=== PATIENT | male | born 1970 | race Caucasian/White ===

== ENCOUNTER 2021-02-16 07:45 | Outpatient (CLI) | payer SELFPAY ==
[2021-02-16 08:11] LABS: Basophils Absolute Auto 0.1 K/mm3 (0.0-0.1); Basophils Percent Auto 1.3 % (0.2-1.2); Eosinophils Absolute Auto 0.2 K/mm3 (0-0.3); Eosinophils Percent Auto 4.5 % (0-4.4); Hemoglobin 15.1 g/dL (14.0-18.0); Immature Granulocyte Absolute 0.03 K/mm3 (0.00-0.031); Immature Granulocyte Percent A 0.8 % (0-0.5); Lymphocytes Percent Auto 26.6 % (18.3-44.2); Mean Corpuscular HGB Conc 32.8 g/dl (32-36); Mean Corpuscular Hemoglobin 29.7 pg (26-34); Mean Corpuscular Volume 90.4 fl (80-100); Mean Platelet Volume 9.9 fl (7.4-10.4); Monocytes Absolute Auto 0.5 K/mm3 (0.1-0.6); Monocytes Percent Auto 13.8 % (2.6-8.5); Platelet Count Result 223 k/mm3 (150-375); Red Blood Count 5.09 M/mm3 (4.6-6.20); Red Cell Distribution Width 13.1 % (11.5-14.5); White Blood Count 3.8 K/mm3 (4.5-10.0)
[2021-02-16 08:26] LABS: Alanine Aminotransferase 27 U/L (4-50); Albumin Level 4.5 g/dL (3.5-5.1); Alkaline Phosphatase 58 U/L (38-126); Anion Gap 5 mmol/L (8-16); Aspartate Amino Transferase 24 U/L (17-59); Bilirubin,Total 0.4 mg/dL (0.2-1.3); Blood Urea Nitrogen 18 mg/dL (9-20); Calcium 9.3 mg/dL (8.4-10.2); Carbon Dioxide 27 mmol/L (22-30); Chloride 106 mmol/L (98-107); Cholesterol 179 mg/dL (0-200); Estimated Glomerular Filt Rate > 60; Glucose 108 mg/dL (65-110); HDL Direct 81 mg/dL; Potassium 4.3 mmol/L (3.4-5.0); Sodium 138 mmol/L (137-145); Triglycerides 40 mg/dL (<150)
[2021-02-16 08:39] LABS: LDL Cholesterol Direct 68 mg/dL
== END 2021-02-16 07:46 | disposition home or self-care (01) ==
LOC: ANHLAB 07:48
PROVIDERS: PCP Internal Medicine; Visit Provider Nurse Practitioner
DX: Z13.29 Encounter for screening for other suspected endocrine disorder (principal); Z13.220 Encounter for screening for lipoid disorders
CPT/HCPCS: 36415; 80053; 80061; 85025

== ENCOUNTER 2023-09-01 11:31 | Emergency (ER) | payer SELFPAY ==
[2023-09-01 11:32] VITALS: BP 173/89; PULSE 80; RESP 14; TEMP 36.5; O2SAT 100
[2023-09-01] MEDS: KETOROLAC 30 MG/ML VIAL (*BKC) IM (12:28)
--- NOTE | 2023-09-01 12:35 | ED.GENADULT ---
[facility] - General Adult General Chief complaint: Abdominal Pain Stated complaint: ABD PAIN Time Seen by Provider: 09/01/23 11:35 Source: patient Mode of arrival: ambulatory Limitations: no limitations History of Present Illness [facility] narrative: This is a 52-year-old male who presents to the ED with chief complaint of right-sided abdominal pain beginning last night while he slept. Reports the pain came on the right lateral abdomen. He was able to take ibuprofen and go back to bed. Reports that last night the pain was 8/10 and now is 4/10. He is thinking the ibuprofen might have helped. States the pain is worse with certain movements and certain positions. He has been working out more over the last few weeks and did an ab workout 2 days ago. Denies any specific injury. Denies troubles with bowel movements, urinary symptoms, fevers, chills, nausea, vomiting, flank pain, chest pain or cough. Related Data Allergies Allergy/AdvReac Type Severity Reaction Status Date / Time No Known Allergies Allergy Verified 08/03/22 11:01 Review of Systems Review of Systems: All systems as dictated in [facility] Past Medical History Medical History Abscess Cellulitis Hypertension Tachycardia Family History Family History Father Acute myocardial infarction Social History Social History Smoking status: Former smoker Alcohol intake: current Alcohol use details: occasionally Lack of Transportation: No Lack of Food: Never True Current Housing: I Have Housing Concerned About Future Housing: No Difficulty Paying Gas/Electric Bills: No Difficulty Paying for Meds: No Currently Unemployed: No Education: Bachelor's Degree Difficulty w/ Childcare or Family Care: No Exam Narrative: GENERAL: Well-appearing, well-nourished, and in no acute distress. HEAD: Normocephalic, atraumatic. EYES: PERRLA and EOMI. ENT: Nares clear, no rhinorrhea or epistaxis. Mucous membranes moist. Oropharynx without tonsillar hypertrophy exudate or other lesions. NECK: Supple. No adenopathy or masses. CHEST: No respiratory distress. Clear to auscultation. No wheezes rales or rhonchi HEART: Regular rate and rhythm. No murmur heard. Normal peripheral pulses. ABDOMEN: Soft, nontender, nondistended, normal active bowel sounds. Negative flank tenderness bilaterally MSK: Normal range of motion. No edema. SKIN: Warm, dry, no rash. NEURO: Alert and oriented x3. No focal deficits. PSYCH: Normal mood and affect. Course Vital Signs Vital signs: Vital Signs Temperature 97.7 F 09/01/23 11:32 Pulse Rate 80 09/01/23 11:32 Respiratory Rate 14 09/01/23 11:32 Blood Pressure 173/89 H 09/01/23 11:32 Pulse Oximetry 100 09/01/23 11:32 Temperature 97.7 F 09/01/23 11:32 Pulse Rate 80 09/01/23 11:32 Respiratory Rate 14 09/01/23 11:32 Blood Pressure 173/89 H 09/01/23 11:32 Pulse Oximetry 100 09/01/23 11:32 Medical Decision Making MDM Narrative Medical decision making narrative: This is a 52-year-old male presents to the ED with chief complaint right-sided abdominal pain beginning overnight. Actually eased up this morning after taking ibuprofen. Vitals are normal. Exam is benign. No focal abdominal tenderness. No flank tenderness. Lab work is grossly benign. Urinalysis negative. Shared decision making to avoid CT at this point with a normal workup. Symptoms most likely consistent with musculoskeletal strain. Pt will be discharged in stable condition. Return precautions given and supportive measures discussed. Pt is understanding and agreeable with plan for discharge and follow-up with PCP. Vital Signs Vital Signs: Vital Signs Temperature 97.7 F 09/01/23 11:32 Pulse Rate 80 09/01/23 11:32 Respiratory Rate 14 09/01/23 11:
[2023-09-01 12:38] LABS: Basophils Percent Auto 0.5 % (0.2-1.2); Eosinophils Absolute Auto 0.2 K/mm3 (0-0.3); Eosinophils Percent Auto 2.1 % (0-4.4); Hematocrit 50.6 % (42.0-52.0); Hemoglobin 16.9 g/dL (14.0-18.0); Immature Granulocyte Absolute 0.03 K/mm3 (0.00-0.031); Immature Granulocyte Percent A 0.4 % (0-0.5); Lymphocytes Absolute Auto 1.29 K/mm3 (0.9-3.2); Lymphocytes Percent Auto 16.1 % (18.3-44.2); Mean Corpuscular HGB Conc 33.4 g/dl (32-36); Mean Corpuscular Hemoglobin 29.8 pg (26-34); Mean Corpuscular Volume 89.2 fl (80-100); Mean Platelet Volume 10.3 fl (7.4-10.4); Monocytes Absolute Auto 0.9 K/mm3 (0.1-0.6); Monocytes Percent Auto 10.8 % (2.6-8.5); Neutrophils Absolute Auto 5.6 K/mm3 (1.3-6.7); Neutrophils Percent Auto 70.1 % (45.5-73.1); Platelet Count Result 226 k/mm3 (150-375); Red Blood Count 5.67 M/mm3 (4.6-6.20); Red Cell Distribution Width 14.1 % (11.5-14.5)
[2023-09-01 12:49] LABS: Appearance Urine Cloudy (Clear); Bacteria Urine None Seen /hpf; Bilirubin Urine Negative (Negative); Blood Urine Negative (Negative); Color Urine Yellow (Yellow); Glucose Urine UA Negative (Negative); Ketones Urine Negative (Negative); Leukocyte Esterase Ur Negative LEU/UL (Negative); Nitrate Urine Negative (Negative); Non Pathogenic Casts 0-2; Protein Urine Negative (Negative); RBC Urine 0-2 /hpf (0-2); Specific Grav Ur 1.014 (1.001-1.035); Squamous Epithelial Cell Urine None seen /hpf (Few); Urobilinogen Urine 0.2 mg/dL (<2.0); WBC Urine 0-5 /hpf; pH Urine 6.5 (5.0-9.0)
[2023-09-01 12:52] LABS: Add Urine Microscopic? YES
[2023-09-01 13:03] LABS: Alanine Aminotransferase 46 U/L (6-50); Albumin Level 4.6 g/dL (3.5-5.1); Alkaline Phosphatase 45 U/L (38-126); Anion Gap 4 mmol/L (8-16); Aspartate Amino Transferase 34 U/L (17-59); Bilirubin,Total 0.8 mg/dL (0.2-1.3); Blood Urea Nitrogen 13 mg/dL (9-20); Calcium 10.3 mg/dL (8.4-10.2); Carbon Dioxide 31 mmol/L (22-30); Chloride 103 mmol/L (98-107); Estimated CRCL calculation 171 ml/min; Estimated Glomerular Filt Rate > 60; Glucose 101 mg/dL (65-110); Lipase 54 U/L (23-300); Potassium 4.2 mmol/L (3.4-5.0); Sodium 138 mmol/L (137-145)
== END 2023-09-01 13:24 | disposition home or self-care (01) ==
PROVIDERS: Emergency Provider Physician Assistant; PCP Internal Medicine
DX: R10.9 Unspecified abdominal pain (principal); I10 Essential (primary) hypertension; Z87.891 Personal history of nicotine dependence
CPT/HCPCS: 36415; 80048; 80076; 81001; 83690; 85025; 96372; 99283; J1885